=== PATIENT | male | born 1980 | race Caucasian/White ===

== ENCOUNTER 2016-08-10 22:19 | Emergency (ER) | payer SELFPAY ==
[~2016-08-10] VITALS: Ht 144.8 cm; Wt 73.5 kg
[2016-08-10 22:20] VITALS: BP_SYST 135
[2016-08-11] VITALS: BP_SYST 124
== END 2016-08-11 | disposition home or self-care (01) ==
LOC: SED 22:19
DX: M94.0 Chondrocostal junction syndrome [Tietze] (principal)
CPT/HCPCS: 93005; 99283